=== PATIENT | female | born 1935 | race Caucasian/White ===

== ENCOUNTER 2022-05-26 14:29 | Emergency (ER) | payer OTHER ==
[~2022-05-26] VITALS: Ht 157.5 cm; Wt 60.8 kg
[2022-05-26] MEDS ORDERED: PRIMIDONE50 MG PO (14:46)
[2022-05-26] MEDS ORDERED: EZETIMIBE-SIMV1 EAC3 PO (14:46)
== END 2022-05-26 20:52 | disposition home or self-care (01) ==
LOC: ER 14:29
DX: M25.511 Pain in right shoulder (principal); L03.113 Cellulitis of right upper limb; M25.521 Pain in right elbow; R07.81 Pleurodynia; W06.XXXA Fall from bed, initial encounter; Y93.89 Activity, other specified; Y92.89 Other specified places as the place of occurrence of the external cause; Z87.81 Personal history of (healed) traumatic fracture

== ENCOUNTER 2022-06-09 18:25 | Emergency (ER) | payer OTHER ==
[~2022-06-09] VITALS: Ht 152.4 cm; Wt 61.2 kg
[~2022-06-09 18:25] MED LIST: EZETIMIBE-SIMV1 EAC3 PO; PRIMIDONE50 MG PO
[2022-06-10] MEDS ORDERED: MELATONIN10 MG (12:49)
== END 2022-06-09 20:27 | disposition home or self-care (01) ==
LOC: ER 18:25
DX: R22.9 Localized swelling, mass and lump, unspecified (principal)

== ENCOUNTER 2022-06-10 12:09 | Emergency (ER) | payer OTHER ==
[~2022-06-10] VITALS: Ht 152.4 cm; Wt 61.2 kg
[2022-06-10] MEDS ORDERED: MELATONIN10 MG (12:49)
== END 2022-06-10 17:08 | disposition home or self-care (01) ==
LOC: ER 12:09
DX: K12.1 Other forms of stomatitis (principal)

== ENCOUNTER 2024-12-27 14:09 | Emergency (ER) | payer OTHER ==
[~2024-12-27] VITALS: Ht 152.4 cm; Wt 58.5 kg
[~2024-12-27 14:09] MED LIST changes: +MELATONIN10 MG
[2024-12-27] MEDS ORDERED: CEFTRIAXONE SODIUM 1,000 MG VIAL IM STA (15:25)
[2024-12-27] MEDS ORDERED: DEXAMETHASONE SODIUM PHOSPHATE 4 MG/ML VIAL IM STA (15:26)
[2024-12-27] MEDS ORDERED: DEXAMETHASONE SODIUM PHOSPHATE 4 MG/ML VIAL ONE (15:29)
[2024-12-27] MEDS ORDERED: LIDOCAINE HCL 1% 10ML VIAL ONE (15:30)
[2024-12-27 16:04] LABS: BASO % 0.9 % (0.1-1.2); EOS # 0.26 (0.04-0.54); EOS % 2.8 % (0.7-7.0); LYMPH # 2.31 (1.18-3.74); LYMPH % 24.8 % (19.3-53.1); MEAN PLATELET VOLUME 9.60 fl (9.4-12.4); MONO # 0.72 (0.24-0.82); MONO % 7.7 % (4.7-12.5); NEUT # 5.92 (1.56-6.13); NEUT % 63.5 % (34.0-71.1); RED CELL DISTRIBUTION WIDTH 13.7 % (11.6-14.4)
[2024-12-27] MEDS ORDERED: BACTRIM DS TAB1 EACH PO (16:59)
== END 2024-12-27 18:39 | disposition home or self-care (01) ==
LOC: ER 14:09
PROVIDERS: General Practice
DX: M79.675 Pain in left toe(s) (principal); L08.9 Local infection of the skin and subcutaneous tissue, unspecified